=== PATIENT | female | born 1940 | race Two or more races ===

== ENCOUNTER 2017-01-11 15:43 | Emergency (ER) | payer MEDICARE, OTHER ==
[~2017-01-11] VITALS: Ht 170.2 cm; Wt 77.1 kg
[~2017-01-11 15:43] MED LIST: ATELVIA35 MG ORAL; COREG12.5 MG ORAL; FLORINEF0.1 MG ORAL; ISOSORBIDE MONO30 M1 PO; LOVAZA1 GM ORAL; PREDNISONE5 M3 PO; PREVACID30 MG ORAL; RANEXA1000 MG ORAL; SYNTHROID75 MCG ORAL; ZETIA10 MG ORAL
--- NOTE | 2017-01-11 16:14 | Emergency Room Report ---
History of Present Illness General Chief Complaint: Lower Extremity Injury Source: Patient, Family Member Present Illness HPI 76-year-old female presents with right knee, right shoulder and right lower back pain after accidental trip and fall last night, approximately 30 hours prior. Patient denies hitting head, is not on aspirin or other any other anticoagulation. 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 Took Celebrex for pain yesterday and today. Patient able to ambulate but with pain to right knee when walking. Pain is associated with some swelling to right knee and an abrasion. Patient also has chronic lower back pain. Denies weakness to lower extremities, bladder incontinence or other focal neurological deficits. Allergies: Coded Allergies: ADHESIVE TAPE (Verified Allergy, Severe, 02/07/15) skin irritation MORPHINE (Verified Allergy, Severe, 02/07/15) SKIN RASH,ITCHING AND SWELLING CODEINE (Verified Allergy, Unknown, 02/06/15) Patient History Past Medical History: see triage record, old chart reviewed Past Surgical History: other - left knee replacement Pertinent Family History: none Social History: Denies: smoking, alcohol use, drug use Now: No Immunizations: UTD Reviewed Nursing Documentation: PMH: Agreed, PSxH: Agreed Nursing Documentation-PMH Hx Cardiac Problems: Yes Hx Cancer: No Hx Gastrointestinal Problems: Yes Hx Neurological Problems: No Hx Neurologic Surgery: Yes - BACK SURGERY-2012, CERVICAL SURGERY-2009 Review of Systems All Other Systems: negative except mentioned in HPI Physical Exam Vital Signs Date Time Temp Pulse Resp B/P (MAP) Pulse Ox O2 Delivery O2 Flow Rate FiO2 01/11/17 15:51 97.5 81 20 148/83 96 Room Air Sp02 EP Interpretation: reviewed, normal General Appearance: normal inspection, well appearing, no apparent distress, alert, GCS 15, non-toxic, other - Smiling, interactive, well appearing Head: normocephalic, atraumatic Eyes: bilateral eye PERRL, bilateral eye EOMI ENT: normal ENT inspection, hearing grossly normal, normal voice Neck: normal inspection, full range of motion, supple, no bony tend Respiratory: normal inspection, lungs clear, normal breath sounds, no respiratory distress, no retraction, no wheezing Cardiovascular #1: regular rate, rhythm, no edema Gastrointestinal: normal inspection, normal bowel sounds, non tender, soft, no guarding, no hernia Genitourinary: no CVA tenderness Musculoskeletal: normal inspection, back normal, normal range of motion, Meagan' s Sign negative, other - Hyperasthesia to even mild touch to bilateral lower back. Right knee: Abrasion to lateral aspect of right knee, some patella swelling and ttp. Right shoulder: No obvious trauma, ROM intact, no deformity Neurologic: normal inspection, alert, oriented x3, responsive, editor map III-XII nml as tested, speech normal Psychiatric: normal inspection, judgement/insight normal, mood/affect normal Skin: normal inspection, normal color, no rash Medical Decision Making Diagnostic Impression: Primary Impression: Fall (on) (from) other stairs and steps, initial encounter Additional Impressions: Right knee pain Qualified Codes: M25.561 - Pain in right knee Right shoulder pain Qualified Codes: M25.511 - Pain in right shoulder Back pain at L4-L5 level ER Course 76-year-old female with right knee and right shoulder pain after accidental trip and fall last night. Mild trauma exam. X-rays negative for fracture or dislocation on ER review. There is some effusion of the right knee. Patient heart has Chris bandage wrapped on right knee advised to continue along with ice and Tylenol as needed for pain. DDX: fracture, dislocation, soft tissue injury, abrasion Plan: xrays, analgesia ER course: Patient has remained stable during ED stay. Disposition: Patient is to be discharged to home. Prescriptions given are Tylenol Patient is instructed to follow up with their primary care doctor within 5 days. Strict return precautions discussed with patient such as fever, chills, worsening/severe pain, nausea, vomiting, which may indicate severe illness. Patient verbalizes understanding and agrees with plan. Please note that this Emergency Department Report was dictated using [employer] associate technology software, occasionally this can lead to erroneous entry secondary to interpretation by the dictation equipment Other X-Ray Diagnostic Results Other X-Ray Diagnostic Results #1: X-Ray ordered: Right knee Indication: Pain PA Xray: Interpretation reviewed Interpretation: no dislocation, no fractures, other - +soft tissue swelling Impression: No acute disease Electronically Signed by: Dr Steve Lawson Other X-Ray Diagnostic Results #2: X-Ray ordered: Right shoulder # of Views/Limited Vs Complete: 3 View Indication: Pain EP Interpretation: Yes Interpretation: no dislocation, no soft tissue swelling, no fractures Impression: No acute disease Electronically Signed by: Dr Steve Lawson MD Last Vital Signs Date Time Temp Pulse Resp B/P (MAP) Pulse Ox O2 Delivery O2 Flow Rate FiO2 01/11/17 15:51 97.5 81 20 148/83 96 Room Air Status: improved Disposition: HOME, SELF-CARE Scripts Acetaminophen (Tylenol) 325 Mg Tablet 650 MG ORAL Q8HR Y for Prn Pain/Headache/Temp > 101 for 7 Days, #30 TAB 0 Refills Prov: STEVE LAWSON M.D. 01/11/17 STEVE LAWSON M.D. Jan 11, 2017 16:14
[2017-01-11] MEDS ORDERED: TYLENOL325 MG ORAL (17:34)
[2017-01-11 17:47] VITALS: BP 138/80
--- NOTE | 2017-01-12 09:12 | Diagnostic Imaging Report ---
Indication: PAIN Technique: 3 views of the right shoulder Comparison: none Findings: No acute fractures. No dislocations. The joint spaces are preserved. There is evidence of prior median sternotomy and cervical fusion surgery. Impression:No acute bony trauma
--- NOTE | 2017-01-12 09:13 | Diagnostic Imaging Report ---
Indication: PAIN Technique: 3 views of the right knee Comparison: None Findings:There are degenerative proliferative changes of the patella. There is mild degenerative medial compartmental degenerative narrowing and medial osteophytes. Small lateral osteophytes are also present. No suprapatellar effusion. No acute fractures. No dislocations. Impression:Degenerative changes. No acute bony trauma
== END 2017-01-11 17:51 | disposition home or self-care (01) ==
LOC: EMR 16:10
DX: M25.561 Pain in right knee (principal); M25.511 Pain in right shoulder; W01.0XXA Fall on same level from slipping, tripping and stumbling without subsequent striking against object, initial encounter; Y92.89 Other specified places as the place of occurrence of the external cause; Z96.652 Presence of left artificial knee joint; Z88.6 Allergy status to analgesic agent; Z91.048 Other nonmedicinal substance allergy status
CPT/HCPCS: 99284